=== PATIENT | female | born 1970 | race Two or more races ===

== ENCOUNTER 2019-09-30 15:57 | Inpatient (IN) | payer SELFPAY ==
[~2019-09-30] VITALS: Ht 165.1 cm; Wt 59.0 kg
[2019-09-30] MEDS ORDERED: ONDANSETRON HCL 4MG/2ML INJ IV STA (20:10)
[2019-09-30] MEDS ORDERED: KETOROLAC 30MG/ML VIAL IV STA (20:10)
[2019-09-30 20:27] LABS: EOSINOPHILS % 0.9 % (0.0-5.0); HEMATOCRIT. 42.7 % (36.0-48.0); LYMPHOCYTES % 27.9 % (20.0-50.0); MEAN CORPUSCULAR HEMOGLOBIN 29.1 pg (28.0-32.0); MEAN CORPUSCULAR VOLUME 82.7 fL (81.0-99.0); MEAN PLATELET VOLUME 7.8 fl (7.4-10.4); NEUTROPHILS % 64.2 % (40.0-76.0); PLATELET 194 x1000/uL (130-400); RED BLOOD CELL COUNT 5.16 mill/uL (4.2-5.4)
[2019-09-30 20:35] LABS: PROTHROMBIN TIME 10.1 sec (9.6-11.0)
[2019-09-30 20:36] LABS: CHLORIDE 102 mEq/L (98-107)
[2019-09-30 21:31] LABS: CLARITY URINE CLEAR (CLEAR); COLOR URINE DARK YELLOW (YELLOW); KETONES URINE 1+ (NEGATIVE); LEUKOCYTE ESTERASE URINE NEGATIVE (NEGATIVE); NITRITE URINE NEGATIVE (NEGATIVE); OCCULT BLOOD URINE NEGATIVE (NEGATIVE); PH URINE 6.5 (4.5-8.0); PROTEIN URINE NEGATIVE (NEGATIVE); SPECIFIC GRAVITY URINE 1.017 (1.005-1.030); UROBILINOGEN URINE 0.2 E.U./dL (0.2-1.0)
[2019-09-30] MEDS ORDERED: PIPERACILLIN/TAZOBACTAM 3.375GM/50ML PREMIX IV ONE (22:15)
[2019-09-30] MEDS ORDERED: PIPERACILLIN/TAZOBACTAM 3.375 G in DEXT 5% WATER 100 ML IV NR (22:15)
[2019-10-01] VITALS (7 sets, daily range): BP systolic 109–137; BP diastolic 60–83
[2019-10-01] MEDS ORDERED: MORPHINE SULFATE 2 MG/ML CPJ (NOT FOR IM USE) IV PRN (02:00)
[2019-10-01] MEDS: DEXT 5%/0.45% NACL KCL 20MEQ/L 1,000 ML IV SCH ×2 (03:49→11:56)
[2019-10-01] MEDS: PIPERACILLIN/TAZOBACTAM 3.375 G in DEXT 5% WATER 100 ML IV SCH ×3 (05:43→17:24)
[2019-10-01] MEDS ORDERED: DEXTROSE 50% WATER 50ML SYRINGE IV PRN (06:00)
[2019-10-01] MEDS: BLOOD SUGAR DIAGNOSTIC STRIP TEST SCH ×3 (07:33→16:56)
[2019-10-01] MEDS: INSULIN LISPRO 100 UNITS/ML SUBCUT SCH ×3 (08:15→17:08)
[2019-10-01] MEDS ORDERED: LEVO500T2 MT (16:11)
[2019-10-01] MEDS ORDERED: METR500T MT (16:11)
[2019-10-01] MEDS ORDERED: METF-416 MT (16:13)
== END 2019-10-01 18:20 | disposition home or self-care (01) ==
LOC: ER 15:57 → 6EST 23:35 → EDBEDREQ 23:50 → EDBEDREQTM 23:50 → EDBEDREQ 23:52 → EDBEDREQTM 23:52 → ENRESERV 10-01 00:13
PROVIDERS: ADMIT Internal Medicine; ATTEND Internal Medicine
DX: K80.00 Calculus of gallbladder with acute cholecystitis without obstruction (principal); E44.1 Mild protein-calorie malnutrition; K76.0 Fatty (change of) liver, not elsewhere classified; E87.6 Hypokalemia; Z68.21 Body mass index [BMI] 21.0-21.9, adult
CPT/HCPCS: 36415; 74181; 76705; 78227; 81003; 82248; 82962; 83036; 99285; A9537; J1815; J1885; J2405; J2543; J7060

== ENCOUNTER 2023-02-16 11:33 | Emergency (ER) | payer MEDICAID ==
[~2023-02-16] VITALS: Ht 162.6 cm; Wt 64.0 kg
[~2023-02-16 11:33] MED LIST: LEVO500T2 MT; METF-416 MT; METR500T MT
[2023-02-16 11:39] VITALS: BP 174/96
[2023-02-16] MEDS ORDERED: IBUPROFEN 600MG TABLET PO ONE (12:15)
== END 2023-02-16 14:21 | disposition home or self-care (01) ==
LOC: ER 11:33
DX: R51.9 Headache, unspecified (principal); M54.6 Pain in thoracic spine; E11.9 Type 2 diabetes mellitus without complications; I10 Essential (primary) hypertension; Z79.84 Long term (current) use of oral hypoglycemic drugs; V49.9XXA Car occupant (driver) (passenger) injured in unspecified traffic accident, initial encounter; Y93.89 Activity, other specified; Y92.89 Other specified places as the place of occurrence of the external cause; Y99.8 Other external cause status
CPT/HCPCS: 71045; 72070; 99284